=== PATIENT | male | born 1950 | race Caucasian/White ===

== ENCOUNTER → 2018-03-10 | Outpatient (CLI) | payer BC | END | disposition home or self-care (01) | LOC: LAB SHORT 12:00 → PLD 12:00 | DX: D23.5 Other benign neoplasm of skin of trunk (principal) | CPT/HCPCS: 88305 ==

== ENCOUNTER 2018-12-07 09:35 | Day surgery (SDC) | payer BC ==
[~2018-12-07] VITALS: Ht 188 cm; Wt 159.3 kg
[~2018-12-07 09:35] MED LIST: ALFU10 PO; Aspirin EC81 MG PO; C-10001000 M1 PO; CLON.1 PO; FISH OIL 1,0001 EAC1 PO; Glucophage1000 MG PO; Klor-Con 1010 MEQ PO; Lasix40 MG PO; Neurontin600 MG PO; TRIBENZOR 40-11 EAC1 PO; TRULICITY1.5 MG/0.5 SC; Zocor20 MG PO
== END 2018-12-07 11:37 | disposition home or self-care (01) ==
LOC: ORSCSDS 09:35
PROVIDERS: Surgery
PROC: 0DJD8ZZ Inspection of Lower Intestinal Tract, Via Natural or Artificial Opening Endoscopic (ICD-10-PCS; principal; 2018-12-07 11:00)
DX: Z12.11 Encounter for screening for malignant neoplasm of colon (principal); I10 Essential (primary) hypertension; E11.9 Type 2 diabetes mellitus without complications; G47.33 Obstructive sleep apnea (adult) (pediatric); G51.0 Bell's palsy; E78.00 Pure hypercholesterolemia, unspecified; N40.0 Benign prostatic hyperplasia without lower urinary tract symptoms; Z79.82 Long term (current) use of aspirin; Z79.84 Long term (current) use of oral hypoglycemic drugs; Z79.899 Other long term (current) drug therapy
CPT/HCPCS: 82947; J2704; J7120

== ENCOUNTER → 2021-04-29 | Outpatient (CLI) | payer BC | END | disposition home or self-care (01) | LOC: LAB SHORT 11:27 | DX: D04.62 Carcinoma in situ of skin of left upper limb, including shoulder (principal) | CPT/HCPCS: 88305 ==

== ENCOUNTER → 2021-10-31 | Outpatient (CLI) | payer BC | END | disposition home or self-care (01) | LOC: LAB SHORT 12:04 → PLD 12:04 | DX: C44.619 Basal cell carcinoma of skin of left upper limb, including shoulder (principal) | CPT/HCPCS: 88305 ==